=== PATIENT | male | born 1945 | race Caucasian/White ===

== ENCOUNTER 2016-11-09 07:37 | Inpatient (IN) | payer MEDICARE ==
[2016-11-09] VITALS (12 sets, daily range): BP systolic 121–148; BP diastolic 42–83; PULSE 19–89; RESP 16–20; TEMP 96.7–98.6; O2SAT 74–97
[~2016-11-09] VITALS: Ht 175.3 cm; Wt 117.5 kg
[~2016-11-09 07:37] MED LIST: 1-ME1LIQ PO; ALLE12TA PO; ALPR1TAB3 PO; ASPI81 PO; CYCL1PAK PO; GEMF600T PO; MELO7.5 PO; MULT-65 PO; NEUR600T PO; PRAV80 PO; SPIRCAP INH; TRAM50TA PO; VICO10TA PO
[2016-11-09] MEDS ORDERED: POVIDONE IODINE 5% (ANTISEPSIS KIT) 4 APPLICATIONS EACH NARE SCH (08:30)
[2016-11-09] MEDS ORDERED: ceFAZolin 2 GM PREMIX 50 ML - implanted port/tunneled catheter insertion IV SCH (08:30)
[2016-11-09] MEDS ORDERED: CHLORHEXIDINE GLUCONATE 2 % 1 PACK (2 CLOTHS) TOPICAL SCH (08:30)
[2016-11-09] MEDS: SODIUM CHLORIDE 0.9% 1000 ML IV SCH (08:30)
[2016-11-09] MEDS ORDERED: VANCOMYCIN 1000 MG/NS 250 ML - implanted port/tunneled catheter IV SCH ×2 (08:30)
[2016-11-09] MEDS ORDERED: ANTI1CRE6 (08:36)
[2016-11-09] MEDS ORDERED: CYCL1TAB29 PO (08:36)
[2016-11-09] MEDS ORDERED: GABA600T PO (08:36)
[2016-11-09] MEDS ORDERED: HYDR-3516 PO (08:36)
[2016-11-09] MEDS ORDERED: ASPI81CH37 CHEW (08:36)
[2016-11-09] MEDS ORDERED: AMLO10TA2 PO (08:36)
[2016-11-09] MEDS ORDERED: GEMF600T PO (08:36)
[2016-11-09] MEDS ORDERED: FEXO1TAB97 PO (08:36)
[2016-11-09] MEDS ORDERED: MULT-17 PO (08:36)
[2016-11-09] MEDS ORDERED: MELO7.5T4 PO (08:37)
[2016-11-09] MEDS ORDERED: SPIRCAP INH (08:40)
[2016-11-09] MEDS ORDERED: ACET-822 PO (08:40)
[2016-11-09] MEDS ORDERED: PRAV80TA2 PO (08:40)
[2016-11-09] MEDS ORDERED: TRAM50TA PO (08:40)
[2016-11-09] MEDS ORDERED: LIDOCAINE 1%/EPINEPHrine 1:100,000 SOLN 20 ML VIAL ONE (12:52)
[2016-11-09] MEDS ORDERED: fentaNYL CITRATE 250 MCG/5 ML AMP ONE (13:01)
--- NOTE | 2016-11-09 13:26 | PD.RAD ---
Post CT Procedure Prog Note Pre Procedure Diagnosis: (1) Mass of right lung Post Procedure Diagnosis: (1) Mass of right lung Procedure Date: Nov 09, 2016 Supervising Radiologist: Du Holgiun Anesthesia: Local, Analgesia Plan of Activity Patient to Unit: ROPU Patient Condition: Poor Additional Comments: uncomplicated right lung biopsy. 2 core samples take. follow up cxr pending full report to follow See PACS Report for procedural detail/treatment Du Holguin MD Nov 09, 2016 13:26
[2016-11-09] MEDS ORDERED: oxyCODONE/ACETAMINOPHEN 5 MG/325 MG TAB PO PRN (13:30)
--- NOTE | 2016-11-09 14:08 | RADRPT ---
EXAM DATE/TIME: 11/09/2016 13:07 [facility] COMPARISON: No previous studies available for comparison. INDICATIONS : Right lung mass. SEDATION TIME: 30 minutes BIOPSY SITE: Right MEDICATION(S): 1.) 100 mcg fentanyl (Sublimaze) IV DEVICE(S): 1.) 20 gauge Temno core biopsy needle MEDICAL HISTORY : Hypertension. SURGICAL HISTORY : None. ENCOUNTER: Initial ACUITY: 1 day PAIN SCORE: 0/10 LOCATION: Right chest A total of two core specimen(s) were obtained and sent to the laboratory for pathologic evaluation. PROCEDURE: 1. CT guided lung biopsy. 2. Conscious sedation with continuous EKG and oximetry monitoring. 3. EKG and oximetry remained stable throughout the procedure. Prior to the procedure informed consent was obtained. Any appropriate prior imaging studies were rev iewed. Using automated exposure control and adjustment of the mA and/or kV according to patient size, radiation dose was kept as low as reasonably achievable to obtain optimal diagnostic quality images. DICOM format image data is available electronically for review and comparison. The site was prepped in a sterile fashion. Full sterile technique was used, including cap, mask, saul rile gloves and gown and a large sterile sheet. Hand hygiene and 2% chlorhexidine and/or betadine/al cohol prep was utilized per protocol for cutaneous antisepsis. The skin and subcutaneous tissues wer e infiltrated with local anesthetic solution. With CT guidance the previously identified target was localized. Biopsy was performed using the presc ribed needle as above. Adequate hemostasis was obtained with compression at the puncture site. Follow-up CT scan reveals no pneumothorax. Conscious sedation was performed with the prescribed dosages and duration as above in the presence of an independent trained radiology nurse to assist in the monitoring of the patient. EKG and oximetry remained stable throughout the procedure. The patient tolerated the procedure well and there were no complications. The patient was sent to Radiology Outpatient Unit in stable condition. CONCLUSION: Uncomplicated CT guided biopsy. Du Holguin MD on November 09, 2016 at 14:06 Board Certified Radiologist. This report was verified electronically.
--- NOTE | 2016-11-09 15:01 | RADRPT ---
EXAM DATE/TIME: 11/09/2016 14:02 [facility] COMPARISON: CT NEEDLE BIOPSY LUNG, RIGHT, November 09, 2016, 13:07. INDICATIONS : Status post right lung biopsy. MEDICAL HISTORY : Chronic obstructive pulmonary disease. Carcinoma, lung. SURGICAL HISTORY : None. ENCOUNTER: Subsequent ACUITY: 1 day PAIN SCORE: 0/10 LOCATION: chest FINDINGS: The patient's large right upper lobe mass is again identified. There is no pneumothorax following bio psy. The left lung is clear. The bony structures demonstrate an abnormal appearance of the left shoulder. CONCLUSION: 1. No pneumothorax identified following CT guided biopsy of the right lung. Du Holguin MD on November 09, 2016 at 14:58 Board Certified Radiologist. This report was verified electronically.
--- NOTE | 2016-11-09 16:00 | HHI.HP ---
HPI Service [facility] Primary Care Physician Dre Pena MD, PhD Admission Diagnosis Hypoxia Chief Complaint: SOB, lung mass Travel History International Travel<30 Days: No Contact w/Intl Traveler <30 Da: No Traveled to Known Affected Are: Yes History of Present Illness Mr. Hector is a pleasant 70 y/o male with hx of tobacco abuse, HTN, hyperlipidemia , COPD, and anxiety/depression. He is being admitted to the hospital from the Radiology outpt unit for hypoxia. Pt presented to Radiology department today for a lung biopsy and possible port placement. He was recently found to have a large mass in the right lung and evidence of metastatic disease and a pathological fracture of the left shoulder. In June he had started having discomfort whenever he moved his left shoulder. He went to see Dr. Pena, x- ray was obtained which was negative. He had an MRI of the left shoulder (09/27) which revealed metastatic lesion causing pathological fracture of the glenoid and humeral head on the left side. Noncontrasted CT scan of the chest on 09/26 revealed pulmonary granulomatous disease with calcification of the right hilar and mediastinal lymph node and spleen. The patient was seen by Oncology and he had a PET scan on 10/21 which revealed uptake in the 6.6 cm right upper lobe lung mass, mediastinal lymphadenopathy, left axillary and left supraclavicular lymphadenopathy. Also there is significant uptake noted in the right adrenal gland mass, multiple bone sites. There is a large destructive lesion noted in the left shoulder with pathological fracture. Pt was sent for lung biopsy and possible port placement today. Upon arrival to the Radiology unit the pt was hypoxic with O2 sats in the 70's on RA. Pt states that he has been having issues with hypoxia for about a year. He had the lung biopsy performed but the port placement was put on hold. He was given a breathing treatment for audible wheezing in the Radiology unit and is currently on 6L of supplemental O2 with sats in the 's. Pt reports anorexia, fatigue, malaise and 40 pounds of weight loss in the last six months or so. Review of Systems Constitutional: COMPLAINS OF: Weight loss, Change in appetite, DENIES: Fever, Chills Eyes: DENIES: Vision loss Ears, nose, mouth, throat: DENIES: Hearing loss, Throat pain, Sinus Pain Respiratory: COMPLAINS OF: Cough, Wheezing, Shortness of breath Cardiovascular: DENIES: Chest pain, Lower Extremity Edema Gastrointestinal: DENIES: Abdominal pain, Constipation, Diarrhea, Nausea, Vomiting Genitourinary: DENIES: Dysuria Musculoskeletal: DENIES: Back pain, Neck pain Integumentary: DENIES: Rash Neurologic: DENIES: Headache Psychiatric: DENIES: Confusion Past Family Social History Past Medical History Right Lung mass with evidence of metastatic disease to the LN and bones Left shoulder with pathological fracture Anxiety COPD Depression Hemorrhoids High Cholesterol Hypertension BCC skin cancer Osteoarthritis Morbid obesity Tobacco abuse RLS Past Surgical History Bilateral total hip replacements, in 2004 and 2005 Removal of undescended testicle Skin bx for ca Tonsillectomy Reported Medications -Tramadol 50 Mg PO HS PRN -Pravastatin 80 Mg PO DAILY -Meloxicam 7.5 Mg PO BID -Gemfibrozil 600 Mg PO BIDAC -Century Tablet (Multivit-Min/FA/Lycopen/Lutein) 1 Each Tablet 1 Tab PO DAILY -Aspirin 81 Mg CHEW DAILY -Amlodipine 10 Mg PO DAILY -Bree-D 24 Hour Allergy 180-240 Jermain 1 Tab PO DAILY -Breo Ellipta 100/25 Mcg INH DAILY --Gabapentin 600 Mg PO TID (?800mg) ?Hydrocodone-Acetaminophen 5-325 mg Tab 1 Tab PO Q6H PRN ?Flexeril (Cyclobenzaprine HCl) 10 Mg Tab 10 Mg PO TID Allergies: Coded Allergies: Chantix (Verified Allergy, Severe, Headache, 05/07/12) Wellbutrin (Verified Allergy, Severe, Headache, 05/07/12) ALSO INSOMNIA Prozac (Verified Allergy, Intermediate, Diarrhea, 05/07/12) Zocor (Verified Allergy, Unknown, 05/07/12) STATES HE DOES NOT KNOW Onion (Verified Adverse Reaction, Mild, RXN= GAS, 05/07/12) Family History Mother with hx of leukemia Father with hx of kidney failure One brother who is alive and healthy One sister is No children Social History (+)Tobacco use, 2ppd x 50 years (+)Hx of alcohol use, none for the last 4 years (+)Occasional marijuana use Pt is , no children Pt lives alone but has good support from friends. Physical Exam Vital Signs Vital Signs Date Time Temp Pulse Resp B/P Pulse Ox O2 Delivery O2 Flow Rate FiO2 11/09/16 13:45 98.3 78 20 130/78 96 11/09/16 08:52 94 Nasal Cannula 4.00 11/09/16 08:09 91 11/09/16 07:58 98.2 89 20 134/81 86 Physical Exam GENERAL: This is a well-nourished, well-developed patient, in no apparent distress. HEENT: Atraumatic. Normocephalic. No temporal or scalp tenderness. No scleral icterus. Airway patent. NECK: Trachea midline, supple, nontender. CARDIO: Regular. RESP: Coarse breath sounds bilaterally with rhonchus breath sounds in the right base. ABD: +BS, soft, non-tender, nondistended. EXT: Bilateral LE edema. NEURO: Awake and alert. Motor and sensory grossly within normal limits. Normal speech. Imaging Last Impressions Lung Biopsy CT 11/09/16 0000 Signed Impressions: Service Date/Time: Wednesday, November 09, 2016 13:07 - CONCLUSION: Uncomplicated CT guided biopsy. Du Holguin MD Septic Shock Reassessment Heart: Regular rate and rhythm Lungs: Course Skin: Warm Assessment and Plan Problem List: (1) Mass of right lung Status: Chronic Plan: - Pt is a 70 y/o male with hx of tobacco abuse, HTN, and COPD. - He is being admitted to the hospital from the Radiology outpt unit for hypoxia. Pt presented to Radiology department today for a lung biopsy and possible port placement. - He was recently found to have a large mass in the right lung and evidence of metastatic disease and a pathological fracture of the left shoulder. - Pt had an outpt MRI of the left shoulder (09/27) which revealed metastatic lesion causing pathological fracture of the glenoid and humeral head on the left side. - Noncontrasted CT scan of the chest on 09/26 revealed pulmonary granulomatous disease with calcification of the right hilar and mediastinal lymph node and spleen. - PET scan on 10/21 which revealed uptake in the 6.6 cm right upper lobe lung mass, mediastinal lymphadenopathy, left axillary and left supraclavicular lymphadenopathy. Also there is significant uptake noted in the right adrenal gland mass, multiple bone sites. There is a large destructive lesion noted in the left shoulder with pathological fracture. - Upon arrival to the Radiology unit the pt was hypoxic with O2 sats in the 70' s on RA. He was placed on supplemental O2 which has been titrated up to 6L currently. - Pt states that he has been having issues with hypoxia for about a year and that Dr. Pena has been trying to get him on supplemental O2 as an outpt for some time but the pt has refused. - He had the lung biopsy performed but the port placement was put on hold due to his hypoxia. - His underlying COPD is likely causing some issues. - We will start Solu-Medrol 125mg x one dose now and then 60mg Q6H - Start scheduled Duonebs Q4H and Q2H PRN - Mucinex BID - Cont. home meds - Walk test in the morning - Supportive care - DVT prophylaxis with SCDs (2) COPD (chronic obstructive pulmonary disease) Status: Chronic Plan: - See above. (3) Pathological fracture of left shoulder Status: Chronic Plan: - Pain control PRN - Flexeril PRN for muscle spasms (4) HTN (hypertension), benign Status: Chronic Plan: - Cont. home meds, Amlodipine 10mg daily - Monitor (5) Hyperlipidemia Status: Chronic Plan: - Home meds continued Assessment and Plan Patient examined. Assessment and plan formulated with Gricelda Stuart PA-C. I agree with the above. metastatic lung ca. Large right lung mass. s/p bx today. unable to get port due to copd exacerbation and hypoxia. admit pt for nebs/solumedrol. walk test and oxygen. He is reluctant to be admitted and has been refusing oxygen over past yr from his pcp. Maybe if we can get him stabilized a port could be rescheduled. Physician Certification 2 Midnight Certification Type: Admission for Inpatient Services Order for Inpatient Services The services are ordered in accordance with Medicare regulations or non- Medicare payer requirements, as applicable. In the case of services not specified as inpatient-only, they are appropriately provided as inpatient services in accordance with the 2-midnight benchmark. Estimated LOS (days): 2 2 days is the estimated time the patient will need to remain in the hospital, assuming treatment plan goals are met and no additional complications. Post-Hospital Plan: Not yet determined Gricelda Stuart Nov 09, 2016 16:00 Clifford Savage MD Nov 09, 2016 17:12
[2016-11-09] MEDS ORDERED: FLUT1INH INH (16:29)
[2016-11-09] MEDS ORDERED: traMADol HCL 50 MG TAB PO PRN (16:30)
[2016-11-09] MEDS ORDERED: RESP: ALBUTEROL 2.5 MG/IPRATROPIUM 0.5 MG NEB (PRN) NEB (16:30)
[2016-11-09] MEDS ORDERED: ONDANSETRON HCL 4 MG/2 ML VIAL IV PRN (16:45)
[2016-11-09] MEDS ORDERED: ACETAMINOPHEN 325 MG TAB PO PRN (16:45)
[2016-11-09] MEDS ORDERED: CYCLOBENZAPRINE HCL 10 MG TAB PO SCH (18:00)
[2016-11-09] MEDS ORDERED: CYCLOBENZAPRINE HCL 10 MG TAB PO PRN (18:00)
[2016-11-09] MEDS ORDERED: methylPREDNISolone SOD SUCC 125 MG/2 ML VIAL IV PUSH ONE (19:15)
[2016-11-09] MEDS: GABAPENTIN 300 MG CAP PO SCH (20:44)
[2016-11-09] MEDS: ACETAMINOPHEN/HYDROcodone 325 MG/5 MG TAB PO PRN (20:45)
[2016-11-09] MEDS: guaiFENesin E.R. 600 MG TAB PO SCH (20:45)
[2016-11-09] MEDS: RESP: ALBUTEROL 2.5 MG/IPRATROPIUM 0.5 MG NEB (SCH) NEB (21:08)
[2016-11-09] MEDS: methylPREDNISolone SOD SUCC 125 MG/2 ML VIAL IV PUSH SCH (23:35)
[2016-11-10] VITALS (9 sets, daily range): BP systolic 102–142; BP diastolic 59–85; PULSE 81–95; RESP 16–20; TEMP 96.6–97.7; O2SAT 95–98
[2016-11-10] MEDS: RESP: ALBUTEROL 2.5 MG/IPRATROPIUM 0.5 MG NEB (SCH) NEB ×6 (00:34→21:45)
[2016-11-10] MEDS: GEMFIBROZIL 600 MG TAB PO SCH ×2 (06:44→16:15)
[2016-11-10] MEDS: methylPREDNISolone SOD SUCC 125 MG/2 ML VIAL IV PUSH SCH ×4 (06:44→23:33)
[2016-11-10] MEDS: SODIUM CHLORIDE 0.9% 1000 ML IV SCH (08:30)
[2016-11-10] MEDS ORDERED: [UNRECOGNIZED DRUG - REMARK] PO SCH (09:00)
[2016-11-10] MEDS: guaiFENesin E.R. 600 MG TAB PO SCH ×2 (09:22→21:07)
[2016-11-10] MEDS: GABAPENTIN 300 MG CAP PO SCH ×3 (09:22→18:10)
[2016-11-10] MEDS: PRAVASTATIN SOD 80 MG TAB PO SCH (09:22)
[2016-11-10] MEDS: ASPIRIN 81 MG CHEW TAB CHEW SCH (09:22)
[2016-11-10] MEDS: FLUTICASONE 100 MCG/VILANTEROL 25 MCG INHALER INH SCH (09:22)
--- NOTE | 2016-11-10 09:32 | HHI.PR ---
Subjective Remarks no new complaints Objective Vitals no distress oriented no labored breathing at rest heart reg lung wheezing shirley abd s/nt ext no edema Vital Signs Date Time Temp Pulse Resp B/P Pulse Ox O2 Delivery O2 Flow Rate FiO2 11/10/16 08:46 98 Nasal Cannula 4.00 11/10/16 08:02 96.6 84 19 116/73 95 11/10/16 04:00 97.7 81 18 124/66 96 11/10/16 03:56 95 Nasal Cannula 4.00 11/10/16 00:35 97 Nasal Cannula 4.00 11/10/16 00:00 97.4 82 16 123/74 97 11/09/16 21:45 18 11/09/16 21:08 95 Nasal Cannula 4.00 11/09/16 20:45 95 Nasal Cannula 3.00 11/09/16 20:00 98.6 88 18 124/68 97 11/09/16 18:30 96.7 80 18 121/82 94 11/09/16 17:00 71 16 148/83 95 11/09/16 16:00 19 18 130/79 94 11/09/16 15:30 68 18 125/80 94 11/09/16 15:00 74 18 126/67 74 11/09/16 14:30 74 18 129/42 91 11/09/16 14:00 78 20 138/58 94 11/09/16 13:45 98.3 78 20 130/78 96 11/09/16 11/09/16 11/10/16 15:00 23:00 07:00 Intake Total 250 ml 200 ml Output Total 150 ml Balance 250 ml 50 ml Intake Oral 250 ml 200 ml Output Urine Total 150 ml # Voids 1 # Bowel Movements 0 0 Imaging Last Impressions Lung Biopsy CT 11/09/16 0000 Signed Impressions: Service Date/Time: Wednesday, November 09, 2016 13:07 - CONCLUSION: Uncomplicated CT guided biopsy. Du Holgiun MD A/P Problem List: (1) Mass of right lung Status: Chronic Plan: - Pt is a 70 y/o male with hx of tobacco abuse, HTN, and COPD. - He is being admitted to the hospital from the Radiology outpt unit for hypoxia. Pt presented to Radiology department for a lung biopsy and possible port placement. - He was recently found to have a large mass in the right lung and evidence of metastatic disease and a pathological fracture of the left shoulder. - Pt had an outpt MRI of the left shoulder (09/27) which revealed metastatic lesion causing pathological fracture of the glenoid and humeral head on the left side. - Noncontrasted CT scan of the chest on 09/26 revealed pulmonary granulomatous disease with calcification of the right hilar and mediastinal lymph node and spleen. - PET scan on 10/21 which revealed uptake in the 6.6 cm right upper lobe lung mass, mediastinal lymphadenopathy, left axillary and left supraclavicular lymphadenopathy. Also there is significant uptake noted in the right adrenal gland mass, multiple bone sites. There is a large destructive lesion noted in the left shoulder with pathological fracture. - Upon arrival to the Radiology unit the pt was hypoxic with O2 sats in the 70' s on RA. He was placed on supplemental O2 which has been titrated up to 6L currently. - Pt states that he has been having issues with hypoxia for about a year and that Dr. Pena has been trying to get him on supplemental O2 as an outpt for some time but the pt has refused. - He had the lung biopsy performed but the port placement was put on hold due to his hypoxia. - His underlying COPD is exacerbated cont iv solumedrol/nebs/mucolytic pt eval home o2 walk test If pt improved will reconsult IR for port... but at this point pt reluctant to use home oxygen and I'm not sure he will stay here for Port while we are rx his copd I will call his oncologist.....Spoke to dr Becerril..will ask IR to get Port before d/c and also radiation onc for brain mets seen on MRI (2) COPD (chronic obstructive pulmonary disease) Status: Chronic Plan: - See above. (3) Pathological fracture of left shoulder Status: Chronic Plan: - Pain control PRN - Flexeril PRN for muscle spasms (4) HTN (hypertension), benign Status: Chronic Plan: - Cont. home meds, Amlodipine 10mg daily - Monitor (5) Hyperlipidemia Status: Chronic Plan: - Home meds continued Clifford Savage MD Nov 10, 2016 09:32
[2016-11-10 13:11] LABS: BASOPHIL % 0.1 % (0.0-2.0); EOSINOPHIL % 0.3 % (0.0-4.0); HEMO FLAGS DIFF FINAL; LYMPH % 5.6 % (9.0-44.0); LYMPHOCYTE # 0.4 TH/MM3 (1.0-4.8); MEAN CELL VOLUME 93.5 FL (80.0-100.0); MEAN CORPUSCULAR HEMOGLOBIN 30.5 PG (27.0-34.0); MEAN CORPUSCULAR HGB CONC 32.6 % (32.0-36.0); MONO % 1.8 % (0.0-8.0); NEUT % 92.2 % (16.0-70.0); PLATELET COUNT 185 TH/MM3 (150-450); RED BLOOD COUNT 6.09 MIL/MM3 (4.50-5.90); RED CELL DISTRIBUTION WIDTH 15.4 % (11.6-17.2); WHITE BLOOD COUNT 7.6 TH/MM3 (4.0-11.0)
[2016-11-10 14:42] LABS: BICARBONATE 28.3 MEQ/L (21.0-32.0)
[2016-11-10] MEDS: ACETAMINOPHEN/HYDROcodone 325 MG/5 MG TAB PO PRN (16:15)
--- NOTE | 2016-11-10 16:47 | MB ---
cc: MAVERICK BECERRIL M.D.,[facility] [place],CHELSY Rebolledo M.D. DATE OF CONSULTATION: 11/10/2016. HISTORY OF PRESENT ILLNESS This is a 71-year-old gentleman with a long smoking history who has developed the onset of severe pain involving his left shoulder complex. This became progressive and he was seen by Dr. Pena. An x-ray was considered negative and he was seen by Dr. Gonzales of sports medicine who felt he may have a rotator cuff injury. Unfortunately the pain became progressive and an MRI was performed of his shoulder on 09/27/2016 and that revealed abnormal marrow signal throughout the glenoid with smaller lesions in the acromion and the humeral head suspicious for metastatic disease. There was a possible insufficiency fracture noted well and diffuse low-grade edema of the rotator cuff was also noted. He subsequently went on to have a PET/CT scan performed on October 21, 2016 and this revealed hypermetabolic disease in the left supraclavicular region and dominant mass in the right upper lobe measuring 6.0 x 6.8 cm with an SUV of 15. There are multiple left low axillary lymph nodes, at least seven in number, measuring up to 1.7 cm. There is a 3.3 cm right adrenal gland mass with an SUV of 10.2 and 1.9 cm left adrenal mass which was not considered hypermetabolic. He had multiple hypermetabolic osseous lesions throughout the axial and proximal appendicular skeleton, the largest corresponding to the destructive lesion of the glenoid with associated pathologic fracture and soft tissue extension into the subscapularis tissues. This had an SUV of 15.2. There are also two focal areas of hypermetabolism in the proximal right humerus, multiple ribs, right scapula and multiple thoracic bodies, right iliac wing and medial left ilium and inferior sternum. This gentleman was in the x-ray department on 11/09/[address] directed needle biopsy. This was after seeing Dr. Becerril who coordinated this for him. Unfortunately that biopsy has been reported as nondiagnostic. It was also anticipated that he would proceed with an Infusaport but because of general fatigue and an O2 sat in the 70s, it was elected to admit this gentleman for observation and workup. Additionally, it is important to note that on 11/03/2016 he underwent an MRI of the brain revealing four enhancing lesions; two in the cerebrum and t without in the cerebellum, all thought to be metastatic in nature. The largest lesion is approximately 1 cm in size. This gentleman is denying headaches. He has had no nausea or vomiting. His main symptoms have been related been related to pain in his left shoulder complex. He is a chronic smoker. He has a history of COPD with a chronic cough but he denies increased shortness of breath. He denies any focal neurologic symptoms and he denies seizures or strokes. PAST MEDICAL AND SURGICAL HISTORY: Includes: 1. Tobacco abuse. 2. Hypertension. 3. Hyperlipidemia. 4. COPD. 5. Anxiety / depression. 6. Newly diagnosed metastatic cancer with intracranial metastases with disease as noted above. 7. Depression. 8. Basal cell carcinomas of the skin. 9. Osteoarthritis. 10. Obesity. 11. He has had bilateral total hip replacements in 2004 and 2005. 12. Removal of an undescended testis. 13. Tonsillectomy. OUTPATIENT MEDICATIONS: 1. Alprazolam 1 milligram. 2. Bree D PRN. 3. Amlodipine 10 milligrams daily. 4. Aspirin 81 milligrams daily. 5. Centrum Senior tablet daily. 6. Clotrimazole cream PRN. 7. Cyclobenzaprine 10 milligrams three times a day. 8. Gabapentin 600 milligrams three times a day. 9. Gemfibrozil 600 milligrams twice a day. 10. Hydrocodone / acetaminophen PRN. 11. Meloxicam 7.5 twice a day. 12. Naphcon-A solution ophthalmic daily. 13. Pravastatin 80 milligrams daily. 14. Spiriva inhaler. 15. A stool softener. SOCIAL HISTORY / FAMILY HISTORY: This gentleman lives on his own. He has a son in [place] and his [id number] has flown in to help with him while he is currently in the hospital. His mother with leukemia. His father with kidney failure. A brother is alive and well. A sister is . REVIEW OF SYSTEMS: This gentleman's main system complaints are those of pain in his left shoulder, shortness of breath with exertion and general arthritis. He denies other specific cardiovascular, respiratory, eye, ear, nose or throat, neurologic, gastrointestinal, genitourinary, musculoskeletal, neurologic, endocrine or other complaints. PHYSICAL EXAMINATION: GENERAL: Today on exam this gentleman is resting comfortably in bed and appears to be in no distress. VITAL SIGNS: His vital signs indicate that he was afebrile. Pulse of 84 and regular, respiratory rate of 19, blood pressure of 116/73 and O2 sat on 4 liters of oxygen by nasal cannula of 98%. SKIN, HEAD, EYES, EARS, NOSE, THROAT: There is no jaundice. Conjunctivae and eyelids were normal and he had full EOMs. His oral cavity is normal. There is no adenopathy in his head and neck. LUNGS: He has coarse rales of both lung bases. There is no effusion. HEART: His heart sounds are normal without murmurs, rubs or bruits. ABDOMEN: There are no abdominal masses, tenderness or hepatosplenomegaly. EXTREMITIES: He is moving all limbs. NEUROLOGIC: Power and tone are symmetrical and normal. REVIEW: I have reviewed with this gentleman and his [id number], the current state of knowledge. I have told him that we believe he has metastatic cancer very likely a lung primary with bone, adrenal, lung and brain disease. Before we can initiate treatment with radiation treatment to his brain, we do need to know the pathology. If this is a small cell lung cancer, then he would be a candidate for whole brain radiation. If this is non small cell, then I would advise consideration for stereotactic treatment. I believe this can be given to all four lesions in one, or more likely two sessions. I have explained to him that whole brain radiation can carry some side effects particularly associated with memory in the long-term; however stereotactic radiation can miss occult metastatic disease if it is present so sometimes it is a trade-off but nevertheless we believe stereotactic radiation in general is safer and more effective. I have discussed with Dr. Becerril, who is his medical oncologist, that his biopsy was negative. He indicated that he would coordinate a rebiopsy of this, hopefully while he is in the hospital, so we can elucidate the pathology as soon as possible and move on with treatment as necessary. Thank you again for asking us to see this gentleman. We will continue to follow him and coordinate treatment with you. MD DRE Perez/DEBORA /4:07 PM /4:29 PM
[2016-11-11] VITALS (12 sets, daily range): BP systolic 111–129; BP diastolic 55–73; PULSE 70–89; RESP 18–20; TEMP 96.4–97.3; O2SAT 91–97
[2016-11-11] MEDS: RESP: ALBUTEROL 2.5 MG/IPRATROPIUM 0.5 MG NEB (SCH) NEB ×7 (00:29→23:44)
[2016-11-11] MEDS: methylPREDNISolone SOD SUCC 125 MG/2 ML VIAL IV PUSH SCH ×4 (05:55→23:17)
[2016-11-11] MEDS: GEMFIBROZIL 600 MG TAB PO SCH ×2 (06:49→16:04)
[2016-11-11] MEDS: guaiFENesin E.R. 600 MG TAB PO SCH ×2 (08:17→20:18)
[2016-11-11] MEDS: ASPIRIN 81 MG CHEW TAB CHEW SCH (08:18)
[2016-11-11] MEDS: ACETAMINOPHEN/HYDROcodone 325 MG/5 MG TAB PO PRN ×3 (08:18→22:20)
[2016-11-11] MEDS: GABAPENTIN 300 MG CAP PO SCH ×3 (08:18→16:03)
[2016-11-11] MEDS: PRAVASTATIN SOD 80 MG TAB PO SCH (08:19)
[2016-11-11] MEDS: FLUTICASONE 100 MCG/VILANTEROL 25 MCG INHALER INH SCH (08:20)
[2016-11-11] MEDS: SODIUM CHLORIDE 0.9% 1000 ML IV SCH ×2 (08:30→08:47)
--- NOTE | 2016-11-11 09:04 | HHI.PR ---
Subjective Remarks no new problems Objective Vitals heart reg lung scattered wheeze abd s/nt ext no edema Vital Signs Date Time Temp Pulse Resp B/P Pulse Ox O2 Delivery O2 Flow Rate FiO2 11/11/16 08:15 97 Nasal Cannula 3.00 11/11/16 04:00 97.3 89 18 111/64 96 11/11/16 00:00 96.7 78 18 112/55 94 11/10/16 21:45 96 Nasal Cannula 3.00 11/10/16 20:00 97.7 82 18 115/61 95 11/10/16 20:00 97.7 82 18 115/61 95 11/10/16 16:00 97.4 84 20 102/59 95 11/10/16 09:20 Nasal Cannula 3.00 11/10/16 11/10/16 11/11/16 15:00 23:00 07:00 Intake Total 250 ml 0 ml Output Total 150 ml 550 ml Balance 100 ml -550 ml Intake Oral 250 ml 0 ml Output Urine Total 150 ml 550 ml # Voids 1 1 # Bowel Movements 1 0 0 Result Diagram: 11/10/16 1247 11/10/16 1247 Imaging Last Impressions Lung Biopsy CT 11/09/16 0000 Signed Impressions: Service Date/Time: Wednesday, November 09, 2016 13:07 - CONCLUSION: Uncomplicated CT guided biopsy. Du Holguin MD A/P Problem List: (1) Mass of right lung Status: Chronic Plan: - Pt is a 70 y/o male with hx of tobacco abuse, HTN, and COPD. - He is being admitted to the hospital from the Radiology outpt unit for hypoxia. Pt presented to Radiology department for a lung biopsy and possible port placement. - He was recently found to have a large mass in the right lung and evidence of metastatic disease and a pathological fracture of the left shoulder. - Pt had an outpt MRI of the left shoulder (09/27) which revealed metastatic lesion causing pathological fracture of the glenoid and humeral head on the left side. - Noncontrasted CT scan of the chest on 09/26 revealed pulmonary granulomatous disease with calcification of the right hilar and mediastinal lymph node and spleen. - PET scan on 10/21 which revealed uptake in the 6.6 cm right upper lobe lung mass, mediastinal lymphadenopathy, left axillary and left supraclavicular lymphadenopathy. Also there is significant uptake noted in the right adrenal gland mass, multiple bone sites. There is a large destructive lesion noted in the left shoulder with pathological fracture. - Upon arrival to the Radiology unit the pt was hypoxic with O2 sats in the 70' s on RA. He was placed on supplemental O2 which has been titrated up to 6L currently. - Pt states that he has been having issues with hypoxia for about a year and that Dr. Pena has been trying to get him on supplemental O2 as an outpt for some time but the pt has refused. - He had the lung biopsy performed but the port placement was put on hold due to his hypoxia. - His underlying COPD is exacerbated cont iv solumedrol/nebs/mucolytic pt eval home o2 walk test consult IR for port and rebiopsy. the first bx nondiagnostic Spoke to dr Becerril.. pt also had brain mets. rad onc following. (2) COPD (chronic obstructive pulmonary disease) Status: Chronic Plan: - See above. (3) Pathological fracture of left shoulder Status: Chronic Plan: - Pain control PRN - Flexeril PRN for muscle spasms (4) HTN (hypertension), benign Status: Chronic Plan: - Cont. home meds, Amlodipine 10mg daily - Monitor (5) Hyperlipidemia Status: Chronic Plan: - Home meds continued Clifford Savage MD Nov 11, 2016 09:04
[2016-11-11] MEDS ORDERED: MIDAZOLAM HCL 5 MG/5 ML VIAL ONE ×2 (10:01→11:49)
[2016-11-11] MEDS ORDERED: fentaNYL CITRATE 250 MCG/5 ML AMP ONE ×2 (10:01→11:49)
[2016-11-11] MEDS ORDERED: LIDOCAINE 1%/EPINEPHrine 1:100,000 SOLN 20 ML VIAL ONE ×2 (10:18→11:16)
[2016-11-11] MEDS ORDERED: MIDAZOLAM HCL 2 MG/2 ML VIAL ONE (10:31)
--- NOTE | 2016-11-11 10:56 | PD.RAD ---
Post Procedure Progress Note Pre Procedure Diagnosis: (1) Mass of right lung Post Procedure Diagnosis: (1) Mass of right lung Procedure Date: Nov 11, 2016 Supervising Radiologist: Santos Medeiros JR Proceduralist/Assist: Holly Salazar, RT(R)(CV), Inna Camacho RT(R) Anesthesia: Conscious Sedation Plan of Activity Patient to Unit: [facility] Patient Condition: Good See PACS Report for procedural detail/treatment Central Venous Access Device Procedure 1 Right Internal Jugular Infusaport Placement single lumen Z[place]ian: 8 Findings: Port in good position and functions well. OK to use Plan F/U with IR or a physician in 10-14 days for a site check. Jr. Waldemar,Santos Walters MD Nov 11, 2016 10:56
[2016-11-11] MEDS ORDERED: SODIUM CHLORIDE 0.9% FLUSH 10 ML FLUSH IVF PRN (11:00)
[2016-11-11] MEDS ORDERED: THROMBIN (TOPICAL) 5,000 UNIT VIAL ONE (12:21)
--- NOTE | 2016-11-11 12:38 | PD.RAD ---
Post CT Procedure Prog Note Pre Procedure Diagnosis: (1) Mass of right lung Post Procedure Diagnosis: (1) Mass of right lung Procedure Date: Nov 11, 2016 Supervising Radiologist: Du Holguin Anesthesia: Local, Conscious Sedation Plan of Activity Patient to Unit: ROP[facility] Patient Condition: Poor Additional Comments: CT guided biopsy of right lung repeated.Due to inclusive sample from prior. 18 gauge core samples taken with this biopsy. large core samples obtained. Tract embolized with gel foam due to blood return from guide cath. See PACS Report for procedural detail/treatment Du Holguin MD Nov 11, 2016 12:38
--- NOTE | 2016-11-11 13:29 | RADRPT ---
EXAM DATE/TIME: 11/11/2016 09:58 [facility] COMPARISON: No previous studies available for comparison. INDICATIONS : Recent diagnosis of lung cancer. MEDICAL HISTORY : 1. HTN 2. PAD 3 COPD 4. anxiety 5. depression 6. smoker 7.pathological fracture of left shoulder SURGICAL HISTORY : 1. Lung bx 2. Bilateral hips replaced ENCOUNTER: Initial ACUITY: 2 months PAIN SCORE: 4/10 LOCATION: lt shoulder FLUORO TIME: 0.5 minutes IMAGE SERIES: 0 SEDATION TIME: 30 minutes ACCESS: Right internal jugular vein SEDATION: 1.) 5.5 mg midazolam (Versed) IV 2.) 300 mcg fentanyl (Sublimaze) IV Prophylactic antibiotics were administered with appropriate pre-procedure timing. Vancomycin within 2 hours of procedure, Ancef (or alternative) within 1 hour of procedure. DEVICE: 1. 8 German single lumen smart port PROCEDURE : 1. Continuous pulse oximetry and EKG monitoring. 2. Intravenous conscious sedation. 3. Ultrasound guidance for venous access. 4. Fluoroscopic guided implantable central venous port placement. The patient was placed supine. The neck was prepped in sterile fashion. Full sterile technique was u sed, including cap, mask, sterile gloves and gown, and a large sterile sheet. Hand hygiene and 2% ch lorhexidine Betadine was utilized per protocol for cutaneous antisepsis with appropriate dry time for site. The skin and subcutaneous tissues were infiltrated with local anesthetic solution. Under direct ultrasound guidance, central venous access was accomplished in the targeted vessel. The ultrasound images depicting access guidance were stored and saved to PACS for permanent record. A s ubcutaneous pocket was created using blunt dissection. The port was introduced to the pocket. The c atheter tubing was fed through a subcutaneous tunnel to the venotomy site. The catheter tubing was c ut to a suitable length and then was introduced through a valved Peel-Away sheath and positioned with catheter tubing tip at the cavo-atrial junction level. The pocket incision was closed with subcutic ular Vicryl suture. Steri-Strips were applied. The port was flushed and locked with heparin solutio n per protocol. Sterile dressing was applied to the site. The patient tolerated the procedure well. Conscious sedation was performed with the prescribed dosages and duration as above in the presence of an independent trained radiology nurse to assist in the monitoring of the patient. EKG and oximetry remained stable throughout the procedure. The patient tolerated the procedure well and there were no complications. The patient was sent to post anesthesia recovery in stable condition. CONCLUSION: Uncomplicated ultrasound and fluoroscopic guided implanted central venous port catheter placement as described in detail above. An 8 German Power port was placed. Santos Medeiros Jr., MD on November 11, 2016 at 13:27 Board Certified Radiologist. This report was verified electronically.
--- NOTE | 2016-11-11 14:45 | RADRPT ---
EXAM DATE/TIME: 11/11/2016 14:19 [facility] COMPARISON: CHEST EXPIRATION ONLY, November 09, 2016, 14:02. INDICATIONS : Patient had right lung biopsy. MEDICAL HISTORY : Hypertension. SURGICAL HISTORY : None. ENCOUNTER: Initial ACUITY: 1 day PAIN SCORE: 0/10 LOCATION: Right Chest. FINDINGS: The patient and his ports into position. This large right upper lobe mass. There is no pneumothorax seen post biopsy. The heart is normal in s ize. CONCLUSION: 1. No pneumothorax identified following CT guided biopsy. Du Holguin MD on November 11, 2016 at 14:43 Board Certified Radiologist. This report was verified electronically.
[2016-11-12] VITALS: BP 125/66; PULSE 68; RESP 19; TEMP 96.3; O2SAT 96
[2016-11-12] MEDS: RESP: ALBUTEROL 2.5 MG/IPRATROPIUM 0.5 MG NEB (SCH) NEB ×3 (03:07→10:36)
[2016-11-12 04:00] VITALS: BP 119/74; PULSE 72; RESP 18; TEMP 96; O2SAT 96
[2016-11-12] MEDS: ACETAMINOPHEN/HYDROcodone 325 MG/5 MG TAB PO PRN (04:25)
[2016-11-12] MEDS: methylPREDNISolone SOD SUCC 125 MG/2 ML VIAL IV PUSH SCH ×2 (06:01→13:33)
[2016-11-12] MEDS: GEMFIBROZIL 600 MG TAB PO SCH (06:01)
[2016-11-12 07:00] VITALS: BP 123/72; PULSE 71; RESP 20; TEMP 96.4; O2SAT 95
[2016-11-12 08:24] VITALS: O2SAT 97
--- NOTE | 2016-11-12 08:41 | HHI.PR ---
Subjective Remarks wants to go home and f/u outpt next week with his oncologist Objective Vitals heartreg lung less wheezing abd s/nt ext no edema port in place Vital Signs Date Time Temp Pulse Resp B/P Pulse Ox O2 Delivery O2 Flow Rate FiO2 11/12/16 08:24 97 Nasal Cannula 2.00 11/12/16 07:00 96.4 71 20 123/72 95 11/12/16 04:00 96.0 72 18 119/74 96 11/12/16 00:00 96.3 68 19 125/66 96 11/11/16 20:18 Nasal Cannula 3.00 11/11/16 20:00 96.4 72 19 115/60 94 11/11/16 19:21 94 Nasal Cannula 2.00 11/11/16 16:02 96.9 83 20 111/67 94 11/11/16 14:57 77 20 129/69 95 11/11/16 14:27 70 20 125/73 94 11/11/16 13:57 78 20 127/70 96 11/11/16 13:27 83 20 127/66 93 11/11/16 12:57 87 20 119/64 91 11/11/16 12:42 96.6 75 20 116/65 94 11/11/16 11/11/16 11/12/16 15:00 23:00 07:00 Intake Total 480 ml 480 ml Output Total 600 ml Balance 480 ml -120 ml Intake Oral 480 ml 480 ml Output Urine Total 600 ml Result Diagram: 11/10/16 1247 11/10/16 1247 Imaging Last Impressions Lung Biopsy CT 11/09/16 0000 Signed Impressions: Service Date/Time: Wednesday, November 09, 2016 13:07 - CONCLUSION: Uncomplicated CT guided biopsy. Du Holguin MD A/P Problem List: (1) Mass of right lung Status: Chronic Plan: - Pt is a 70 y/o male with hx of tobacco abuse, HTN, and COPD. - He is being admitted to the hospital from the Radiology outpt unit for hypoxia. Pt presented to Radiology department for a lung biopsy and possible port placement. - He was recently found to have a large mass in the right lung and evidence of metastatic disease and a pathological fracture of the left shoulder. - Pt had an outpt MRI of the left shoulder (09/27) which revealed metastatic lesion causing pathological fracture of the glenoid and humeral head on the left side. - Noncontrasted CT scan of the chest on 09/26 revealed pulmonary granulomatous disease with calcification of the right hilar and mediastinal lymph node and spleen. - PET scan on 10/21 which revealed uptake in the 6.6 cm right upper lobe lung mass, mediastinal lymphadenopathy, left axillary and left supraclavicular lymphadenopathy. Also there is significant uptake noted in the right adrenal gland mass, multiple bone sites. There is a large destructive lesion noted in the left shoulder with pathological fracture. - Upon arrival to the Radiology unit the pt was hypoxic with O2 sats in the 70' s on RA. He was placed on supplemental O2 which has been titrated up to 6L currently. - Pt states that he has been having issues with hypoxia for about a year and that Dr. Pena has been trying to get him on supplemental O2 as an outpt for some time but the pt has refused. - He had the lung biopsy performed but the port placement was put on hold due to his hypoxia. - His underlying COPD is exacerbated The initial bx was nondiagnostic...so on 11/11 he underwent re-bx of the lung mass and had port placed He was seen by rad onc who is awaiting the bx result to begin therapy. He has brain mets The chemo will follow radiation walk test and arrange home o2, nebulizer, hhc eval Pt not interested in staying here.....he can call his oncologists next week for bx result and appt for radiation. (2) COPD (chronic obstructive pulmonary disease) Status: Chronic Plan: - See above. (3) Pathological fracture of left shoulder Status: Chronic Plan: - Pain control PRN - Flexeril PRN for muscle spasms (4) HTN (hypertension), benign Status: Chronic Plan: - Cont. home meds, Amlodipine 10mg daily - Monitor (5) Hyperlipidemia Status: Chronic Plan: - Home meds continued Clifford Savage MD Nov 12, 2016 08:41
--- NOTE | 2016-11-12 08:41 | HHI.DCPOC ---
Discharge Care Plan Diagnosis: (1) Mass of right lung (2) Pathological fracture of left shoulder (3) COPD (chronic obstructive pulmonary disease) (4) HTN (hypertension), benign (5) Hyperlipidemia Goals to Promote Your Health * To prevent worsening of your condition and complications * To maintain your health at the optimal level Directions to Meet Your Goals Take your medications as prescribed Follow your dietary instruction Follow activity as directed Keep your appointments as scheduled Take your immunizations and boosters as scheduled If your symptoms worsen call your PCP, if no PCP go to Urgent Care Center or Emergency Room Smoking is Dangerous to Your Health. Avoid second hand smoke Call the 24-hour hour crisis hotline for domestic abuse at Clifford Savage MD Nov 12, 2016 08:41
[2016-11-12] MEDS ORDERED: IPRA0.02 NEB (08:46)
[2016-11-12] MEDS ORDERED: PRED10 PO (08:46)
[2016-11-12] MEDS ORDERED: ALBU.5I NEB (08:46)
[2016-11-12] MEDS ORDERED: NEBULIZER/ADULT1 KIT (08:47)
--- NOTE | 2016-11-12 08:47 | HHI.FF ---
Face to Face Verification Diagnosis: (1) Mass of right lung (2) COPD (chronic obstructive pulmonary disease) Home Health Nursing Order: Medical education Signs/symptoms of disease process Oxygen administration education Medication education-adverse effect Nursing assessment with vital signs I have seen patient Dangelo Hector on 11/12/16. My clinical findings support the need for the requested home health care services because: Ltd mobility - disease progression I certify that my clinical findings support that this patient is homebound because: Hx COPD- exertion dyspnea/weakness Clifford Savage MD Nov 12, 2016 08:47
[2016-11-12] MEDS ORDERED: OXYGENDME NAS.CANULA (08:49)
[2016-11-12] MEDS: GABAPENTIN 300 MG CAP PO SCH ×2 (08:58→13:32)
[2016-11-12] MEDS: PRAVASTATIN SOD 80 MG TAB PO SCH (08:58)
[2016-11-12] MEDS: ASPIRIN 81 MG CHEW TAB CHEW SCH (08:58)
[2016-11-12] MEDS: guaiFENesin E.R. 600 MG TAB PO SCH (08:58)
[2016-11-12] MEDS: FLUTICASONE 100 MCG/VILANTEROL 25 MCG INHALER INH SCH (08:59)
[2016-11-12 11:39] VITALS: BP 126/67; PULSE 74; RESP 20; TEMP 97.9; O2SAT 95
== END 2016-11-12 16:04 | disposition home or self-care (01) | DRG 181 ==
LOC: HROP 07:37 → HRIP 07:43 → HSDI 15:41 → HROP 15:41 → HOCA 18:41 → OBSVTOIN 11-10 11:31
PROVIDERS: ADMIT Hospitalist; ATTEND Hospitalist
PROC: 0BBC3ZX Excision of Right Upper Lung Lobe, Percutaneous Approach, Diagnostic (ICD-10-PCS; principal; 2016-11-09)
PROC: 0JH60WZ Insertion of Totally Implantable Vascular Access Device into Chest Subcutaneous Tissue and Fascia, Open Approach (ICD-10-PCS; 2016-11-11)
PROC: 02HV33Z Insertion of Infusion Device into Superior Vena Cava, Percutaneous Approach (ICD-10-PCS; 2016-11-11)
PROC: 0BBC3ZX Excision of Right Upper Lung Lobe, Percutaneous Approach, Diagnostic (ICD-10-PCS; 2016-11-11)
DX: C34.11 Malignant neoplasm of upper lobe, right bronchus or lung (principal); M84.522A Pathological fracture in neoplastic disease, left humerus, initial encounter for fracture; C79.31 Secondary malignant neoplasm of brain; C79.51 Secondary malignant neoplasm of bone; C77.3 Secondary and unspecified malignant neoplasm of axilla and upper limb lymph nodes; C77.1 Secondary and unspecified malignant neoplasm of intrathoracic lymph nodes; J44.1 Chronic obstructive pulmonary disease with (acute) exacerbation; C79.71 Secondary malignant neoplasm of right adrenal gland; I10 Essential (primary) hypertension; I73.9 Peripheral vascular disease, unspecified; F41.9 Anxiety disorder, unspecified; F32.9 Major depressive disorder, single episode, unspecified; Z96.643 Presence of artificial hip joint, bilateral; E78.5 Hyperlipidemia, unspecified; M19.90 Unspecified osteoarthritis, unspecified site; E66.9 Obesity, unspecified; Z87.891 Personal history of nicotine dependence; Z85.828 Personal history of other malignant neoplasm of skin; R09.02 Hypoxemia; R63.4 Abnormal weight loss
CPT/HCPCS: 32405; 36561; 71010; 76937; 77001; 77012; 80048; 85025; 88305; 88341; 88342; 94620; 94640; 94664; 99152; 99153; C1788; G0378; J1642; J2250; J2930; J3010; J3370; J7030; J7050